=== PATIENT | female | born 1975 | race Caucasian/White ===

== ENCOUNTER 2020-06-23 10:37 | Outpatient (CLI) | payer OTHER, SELFPAY ==
[2020-06-24 14:53] LABS: SARS-CoV-2 RNA PCR Positive
== END 2020-06-23 10:38 | disposition home or self-care (01) ==
PROVIDERS: PCP Nurse Practitioner Family; Visit Provider Nurse Practitioner Family
DX: U07.1 COVID-19 (principal)
CPT/HCPCS: 87635; C9803; U0003

== ENCOUNTER → 2023-05-26 06:55 | Outpatient (CLI) | payer OTHER, SELFPAY ==
--- NOTE | ~2023-05-26 | XR_ITS ---
Left Hand Technique: PA and lateral views were obtained. Clinical History: Pain Findings: No acute fracture or dislocation is seen. Osseous alignment is anatomic. Joint spaces are p reserved. Soft tissues are unremarkable. Impression: Unremarkable left hand. Reviewed, dictated and finalized at location M. Impression: Unremarkable left hand.
--- NOTE | ~2023-05-26 | XR_ITS ---
Right Hand Technique: PA and lateral views were obtained. Clinical History: Pain Findings: No acute fracture or dislocation is seen. Osseous alignment is anatomic. Joint spaces are p reserved. Soft tissues are unremarkable. Impression: Unremarkable right hand. Reviewed, dictated and finalized at location M. Impression: Unremarkable right hand.
--- NOTE | ~2023-05-26 | XR_ITS ---
EXAMINATION: XR lumbar spine 2-3V DATE: 05/26/2023 08:02 INDICATION: Low back pain TECHNIQUE: Anteroposterior and lateral views of the lumbar spine, and cone-down lateral view of the l umbosacral junction were obtained. COMPARISON: None. FINDINGS: Bone alignment is normal. There is no fracture. There is moderate loss of intervertebral di sc space height at L5-S1. Small degenerative osteophytes project from the anterior endplates of multi ple vertebral bodies. There is mild facet joint osteoarthritis of the lower lumbar spine. IMPRESSION: 1. Mild lumbar spondylosis without acute findings. Reviewed, dictated and finalized at location L.
--- NOTE | ~2023-05-26 | XR_ITS ---
EXAMINATION:XR_[id number]_CR DATE: 05/26/2023 08:02 INDICATION: Neck pain TECHNIQUE: AP, lateral, lateral swimmers and odontoid views of the cervical spine are provided. COMPARISON: None FINDINGS: There is straightening of the cervical spine which can be positional or due to muscular spa sm. Alignment is normal. The odontoid process is intact. No fracture is identified. There is mild los s of intervertebral disc space height at C5-6. Small degenerative osteophytes project from the anteri or endplates of multiple vertebral bodies. The vertebral body heights are maintained. There is mild f acet and uncovertebral joint osteoarthritis. Prevertebral soft tissues are normal. IMPRESSION: 1. Mild cervical spondylosis without acute findings. Reviewed, dictated and finalized at location L.
== END ==
PROVIDERS: PCP Family Medicine; Visit Provider Physician Assistant Medical
DX: M79.10 Myalgia, unspecified site (principal); M79.642 Pain in left hand; M79.641 Pain in right hand; R20.2 Paresthesia of skin; M35.00 Sjogren syndrome, unspecified; M47.816 Spondylosis without myelopathy or radiculopathy, lumbar region; M47.812 Spondylosis without myelopathy or radiculopathy, cervical region
CPT/HCPCS: 72040; 72100; 73120

== ENCOUNTER → 2023-06-25 07:45 | Outpatient (CLI) | payer OTHER, SELFPAY ==
--- NOTE | ~2023-06-25 | MR_ITS ---
EXAMINATION: MR cervical spine wo con DATE: 06/25/2023 08:29 INDICATION: Right shoulder and arm numbness. Right arm weakness. TECHNIQUE: Magnetic resonance imaging (MRI) of the cervical spine was performed without intravenous c ontrast. Sequences included sagittal T2-weighted FSE, sagittal T2-weighted FS FSE, sagittal T1-weight ed FSE, axial MERGE, and axial T2-weighted FSE. COMPARISON: Cervical spine radiographs 05/26/2023 FINDINGS: There is mild kyphosis of cervical spine. Vertebral body heights are normal. There is mildl y decreased disc height at C5-C6. The spinal cord signal intensity is normal. The following disc leve ls are specifically discussed: C2-C3: The disc does not extend beyond the endplate margin. There is no uncovertebral joint osteoarth ritis. There is mild bilateral facet joint osteoarthritis. There is no neural foraminal stenosis. The re is no central canal stenosis. C3-C4: The disc does not extend beyond the endplate margin. There is no uncovertebral joint osteoarth ritis. There is moderate bilateral facet joint osteoarthritis. There is no neural foraminal stenosis. There is no central canal stenosis. C4-C5: The disc does not extend beyond the endplate margin. There is no uncovertebral joint osteoarth ritis. There is severe bilateral facet joint osteoarthritis. There is no neural foraminal stenosis. T here is no central canal stenosis. C5-C6: The disc is bulging. There is mild bilateral uncovertebral joint osteoarthritis. There is mild bilateral facet joint osteoarthritis. There is mild bilateral neural foraminal stenosis. There is mi ld central canal stenosis. C6-C7: The disc is bulging. There is mild left uncovertebral joint osteoarthritis. There is mild righ t facet joint osteoarthritis. There is mild left neural foraminal stenosis. There is mild central can al stenosis. C7-T1: The disc does not extend beyond the endplate margin. There is no uncovertebral joint osteoarth ritis. There is moderate right and mild left facet joint osteoarthritis. There is mild right neural f oraminal stenosis. There is no central canal stenosis. IMPRESSION: 1. Mild cervical spondylosis. Reviewed, dictated and finalized at location A. [employer]ON SUPERVISOR
--- NOTE | ~2023-06-25 | XR_ITS ---
EXAMINATION: XR shoulder RT min 2V DATE: 06/25/2023 10:06 INDICATION: Polyarthralgia. Chronic right shoulder pain. TECHNIQUE: 4 views of right shoulder were obtained. COMPARISON: None. FINDINGS: Bone alignment is normal. No fracture. Glenohumeral joint is normal. There is mild acromioc lavicular joint osteoarthritis. IMPRESSION: 1. Mild right acromioclavicular joint osteoarthritis. Reviewed, dictated and finalized at location A. 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
== END ==
PROVIDERS: PCP Family Medicine; Visit Provider Internal Medicine
DX: M43.02 Spondylolysis, cervical region (principal); M19.011 Primary osteoarthritis, right shoulder; G89.29 Other chronic pain; R29.898 Other symptoms and signs involving the musculoskeletal system
CPT/HCPCS: 72141; 73030